=== PATIENT | female | born 2000 | race Native Hawaiian/Other Pacific Islander ===

== ENCOUNTER 2020-10-19 17:39 | Emergency (ER) | payer OTHER ==
[~2020-10-19] VITALS: Ht 167.7 cm; Wt 90.7 kg
[2020-10-19] MEDS ORDERED: METH-732 PO (18:48)
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
[2020-10-19 19:32] VITALS: BP 121/82
== END 2020-10-19 19:34 | disposition home or self-care (01) ==
LOC: ER 17:41
DX: S16.1XXA Strain of muscle, fascia and tendon at neck level, initial encounter (principal); V89.2XXA Person injured in unspecified motor-vehicle accident, traffic, initial encounter
CPT/HCPCS: 72125